=== PATIENT | male | born 1980 | race Caucasian/White ===

== ENCOUNTER 2018-04-09 14:56 | Emergency (ER) | payer OTHER ==
[2018-04-09] MEDS ORDERED: Bacitracin Oint 1 GM U/D Packet TOP ONE (15:19)
--- NOTE | 2018-04-09 15:47 | EDM.PDOC ---
ED HPI GENERAL MEDICAL PROBLEM - General Chief Complaint: Skin Complaint Stated Complaint: FISH HOOK IN BACK Time Seen by Provider: 04/09/18 15:10 Source of Information: Reports: Patient, Family History Limitations: Reports: No Limitations - History of Present Illness INITIAL COMMENTS - FREE TEXT/NARRATIVE: pt has a fishook in the area by his rt scapula Onset: Today, Sudden Duration: Hour(s): Location: Reports: Back Associated Symptoms: Reports: No Other Symptoms - Related Data Allergies Allergy/AdvReac Type Severity Reaction Status Date / Time No Known Allergies Allergy Verified 04/09/18 15:23 Home Meds: Home Meds Buprenorphine HCl/Naloxone HCl [Suboxone 12 mg-3 mg Sl Film] 04/09/18 [History] Past Medical History - Past Surgical History Musculoskeletal Surgical History: Reports: Other (See Below) Other Musculoskeletal Surgeries/Procedures:: right ankle Social & Family History - Tobacco Use Smoking Status *Q: Current Every Day Smoker Years of Tobacco use: 20 Packs/Tins Daily: 0.5 - Recreational Drug Use Recreational Drug Use: Yes Drug Use in Last 12 Months: Yes Recreational Drug Type: Reports: Marijuana/Hashish ED ROS GENERAL - Review of Systems Review Of Systems: See Below Constitutional: Reports: No Symptoms HEENT: Reports: No Symptoms, Other (pt has a infected tooth rt upper) Respiratory: Reports: No Symptoms Cardiovascular: Reports: No Symptoms Endocrine: Reports: No Symptoms GI/Abdominal: Reports: No Symptoms : Reports: No Symptoms Musculoskeletal: Reports: No Symptoms Skin: Reports: No Symptoms ED EXAM, SKIN/RASH Exam: See Below Text/Narrative:: The pt has a painful tooth On the rt upper. He has a fishook in the area by his rt scapula. Exam Limited By: No Limitations General Appearance: Alert, Anxious Ears: Normal TMs Nose: Normal Inspection Throat/Mouth: Normal Inspection Head: Atraumatic Neck: Normal Inspection Respiratory/Chest: No Respiratory Distress Cardiovascular: Regular Rate, Rhythm GI/Abdominal: Soft, Non-Tender (Male) Exam: Deferred Rectal (Males) Exam: Deferred Back Exam: Other (Pt has treble hook by the rt scapula) Extremities: Normal Inspection Course - Vital Signs Last Recorded V/S: Last Vital Signs Temp 35.6 C 04/09/18 15:29 Pulse 68 04/09/18 15:29 Resp 16 04/09/18 15:29 BP 126/77 04/09/18 15:29 Pulse Ox 98 04/09/18 15:29 - Orders/Labs/Meds Meds: Medications Discontinued Medications Generic Name Dose Route Start Last Admin Trade Name Leonardo PRN Reason Stop Dose Admin Bacitracin 1 dose 04/09/18 15:19 04/09/18 15:30 Bacitracin Oint 1 Gm TOP 04/09/18 15:20 1 dose ONETIME ONE Administration Lidocaine HCl 5 ml 04/09/18 15:21 04/09/18 15:30 Xylocaine-Mpf 1% INJECT 04/09/18 15:22 5 ml ONETIME ONE Administration - Re-Assessments/Exams Free Text/Narrative Re-Assessment/Exam: 04/09/18 15:57 area was cleaned and infiltrated with lidocaine The hook was pushed through and the traci cut off. The hook was removed without difficulty. Departure - Departure Time of Disposition: 15:45 Disposition: Home, Self-Care 01 Condition: Fair Clinical Impression: Foreign body - Discharge Information Instructions: Wound Care, Adult Referrals: PCP,None [Primary Care Provider] - Forms: ED Department Discharge Care Plan Goals: bacatracin to area, rtc if problems. infected front tooth--amoxicillin 500mg tid.
== END 2018-04-09 16:03 | disposition home or self-care (01) ==
LOC: JP.ED 14:56
DX: S40.251A Superficial foreign body of right shoulder, initial encounter (principal); K04.7 Periapical abscess without sinus; W45.8XXA Other foreign body or object entering through skin, initial encounter; F17.210 Nicotine dependence, cigarettes, uncomplicated
CPT/HCPCS: 99283